=== PATIENT | male | born 1965 | race Caucasian/White ===

== ENCOUNTER 2017-03-18 11:20 | Emergency (ER) | payer OTHER ==
[~2017-03-18] VITALS: Ht 177.8 cm; Wt 106.7 kg
[~2017-03-18 11:20] MED LIST: DIPH25CA65 PO
[2017-03-18 11:31] VITALS: TEMP 36.3; Ht 177.8 cm; Wt 106.7 kg
[2017-03-18] MEDS ORDERED: METOCLOPRAMIDE HCL INJ 5 MG/ML 2 ML VIAL IV STA (12:00)
[2017-03-18] MEDS ORDERED: KETOROLAC TROMETHAMINE 30 MG/ML VIAL IV STA (12:00)
[2017-03-18] MEDS ORDERED: SODIUM CHLORIDE 0.9% 1000ML 2,000 ML IV STA (12:00)
[2017-03-18] MEDS ORDERED: DiphenhydrAMINE HCL 50 MG/ML VIAL IV STA (12:00)
--- NOTE | 2017-03-18 12:09 | EMERGENCY ROOM VISIT NOTE ---
History Report prepared by Scribe: Azra Gaffney Under the Supervision of: Dr. Wilmar Mancera M.D. First contact with patient: 11:57 Chief Complaint: HEADACHE Stated Complaint: MIGRAINE History of Present Illness The patient is a 51 year old male who presents to the Emergency Room with complaints of a persistent headache since 0700 this morning. He admits to a history of migraine headaches and states his current headache feels like his typical migraine. He rates his discomfort as a 10/10 in severity. Light worsens his pain. Benadryl has provided no pain relief. He has been nauseous and has vomited multiple times since 0700 this morning. He denies any vision changes. The patient also denies any back pain, abdominal pain, diarrhea or urinary symptoms. Source of History: patient Onset: 0700 this morning Position: head Symptom Intensity: 10/10 Timing: other (persistent) Modifying Factors (Worsening): other (exposure to light) Associated Symptoms: + nausea, + vomiting, No abdominal pain, No back pain, No diarrhea, No urinary symptoms Review of Systems See HPI for pertinent positives and negatives. A total of ten systems were reviewed and were otherwise negative. Past Medical & Surgical Medical Problems: (1) Migraines Family History Patient reports no known family medical history. Social History Smoking Status: Never Smoker Alcohol Use: occasionally Drug Use: none Marital Status: Housing Status: lives with family Occupation Status: employed Current/Historical Medications No Active Prescriptions or Reported Meds Allergies Coded Allergies: No Known Allergies (Unverified , 03/18/17) Physical Exam Vital Signs Date Time Temp Pulse Resp B/P (MAP) Pulse Ox O2 Delivery O2 Flow Rate FiO2 03/18/17 14:08 60 18 111/68 96 Room Air 03/18/17 13:30 59 18 120/74 98 Room Air 03/18/17 11:31 36.3 82 18 146/94 96 Room Air Physical Exam GENERAL: Awake, alert, uncomfortable-appearing, in no distress HENT: Normocephalic, atraumatic. Oropharynx unremarkable. Dry mucous membranes. EYES: Normal conjunctiva. Sclera non-icteric. NECK: Supple. No nuchal rigidity. FROM. No JVD. RESPIRATORY: Clear to auscultation. CARDIAC: Regular rate, normal rhythm. Extremities warm and well perfused. Pulses equal. ABDOMEN: Soft, non-distended. No tenderness to palpation. No rebound or guarding. No masses. RECTAL: Deferred. MUSCULOSKELETAL: Chest examination reveals no tenderness. The back is symmetrical on inspection without obvious abnormality. There is no CVA tenderness to palpation. No joint edema. LOWER EXTREMITIES: Calves are equal size bilaterally and non-tender. No edema. No discoloration. NEURO: Normal sensorium. No sensory or motor deficits noted. normal cerebellar function with [id number]. SKIN: No rash or jaundice noted. Medical Decision & Procedures Medications Administered Medications (Trade) Dose Ordered Sig/Fidencio Route Start Time Stop Time Status Last Admin Dose Admin Sodium Chloride 2,000 ml @ 999 mls/hr Q2H1M STAT IV 03/18/17 12:00 03/18/17 14:00 DC 03/18/17 12:13 999 MLS/HR Metoclopramide HCl (Reglan Inj) 10 mg NOW STAT IV 03/18/17 12:00 03/18/17 12:04 DC 03/18/17 12:13 10 MG Ketorolac Tromethamine (Toradol Inj) 15 mg NOW STAT IV 03/18/17 12:00 03/18/17 12:04 DC 03/18/17 12:13 15 MG Diphenhydramine HCl (Benadryl Inj) 12.5 mg NOW STAT IV 03/18/17 12:00 03/18/17 12:04 DC 03/18/17 12:13 12.5 MG Dexamethasone Sodium Phosphate (Dexamethasone Inj Pf) 10 mg NOW ONCE IV 03/18/17 14:00 03/18/17 14:01 DC 03/18/17 13:56 10 MG ED Course 1159: The patient was evaluated in room B7. A complete history and physical exam was performed. 1355: I reevaluated the patient. He is feeling well and resting comfortably. I discussed his results and discharge instructions and he verbalized complete understanding and agreement. Medical Decision I reviewed the patient's past medical history, medications, and the nursing notes as described above. Differential Diagnoses: Migraine, sinusitis, tension headache, cluster headache , dehydration, electrolyte abnormality, ICH. The patient is a 51 yo gentleman with pmhx of migraines who presents to the emergency department with migraine RAMIREZ since this morning per HPI. On arrival the patient is uncomfortable but in NAD, AFVSS. Neuro intact. Patient reports feels like his typical migraines, thus no indication for w/u at this time. Given migraine cocktail with pain improved from 10 to 3. Patient given dose of dexamethasone for additional Ramirez relief. Patient feeling OK for d/c home. Plan for pcp f/u. Findings and plan for follow-up reviewed with patient. Patient agreeable and d/c'd per discharge instructions. Medication Reconcilliation Current Medication List: was personally reviewed by me Blood Pressure Screening Patient's blood pressure: Normal blood pressure Blood pressure disposition: Did not require urgent referral Impression Primary Impression: Migraine Scribe Attestation The scribe's documentation has been prepared under my direction and personally reviewed by me in its entirety. I confirm that the note above accurately reflects all work, treatment, procedures, and medical decision making performed by me. Departure Information Dispostion Home / Self-Care Prescriptions No Active Prescriptions or Reported Meds Referrals No Doctor, Assigned (PCP) Patient Instructions ED Headache Migraine, My [facility] Additional Instructions Please follow up with your primary care physician in the next 1-3 days for re- evaluation. You were treated for a migraine headache and improved. Otherwise, your exam did not show signs of an emergent condition at this time. Drink plenty of fluids to ensure hydration. Return to the emergency department for worsening symptoms as described in the accompanying instructions.
[2017-03-18] MEDS ORDERED: DEXAMETHASONE **PF** INJ 10 MG/ML VIAL IV ONE (14:00)
[2017-03-18 14:08] VITALS: BP 111/68; PULSE 60; O2SAT 96
== END 2017-03-18 14:11 | disposition home or self-care (01) ==
LOC: C.EDB 11:21
DX: G43.909 Migraine, unspecified, not intractable, without status migrainosus (principal)